=== PATIENT | male | born 1950 | race Caucasian/White ===

== ENCOUNTER 2017-03-07 11:35 | Emergency (ER) | payer OTHER ==
--- NOTE | 2017-03-07 11:41 | PDOC ---
History of Present Illness - General Chief Complaint: Injury Stated Complaint: LEFT FOOT INJURY Time Seen by Provider: 03/07/17 11:39 - History of Present Illness Initial Comments: 03/07/17 11:40 Patient is an otherwise healthy 66 year old male who sustained a small puncture wound to the left heal from a wire gate. The wound stopped bleeding spontaneously. Wound was cleaned with alcohol and dressed with a bandage. Patient's last tetanus shot was when he was a boy. Endorses pain to left heal but able to bear weight, denies redness, warmth or discharge Past History - Past Medical History Allergies/Adverse Reactions: Allergies Allergy/AdvReac Type Severity Reaction Status Date / Time No Known Allergies Allergy Verified 03/07/17 11:41 Home Medications: Ambulatory Orders NK [No Known Home Medication] 03/07/17 Review of Systems - Review of Systems Comments:: 03/07/17 11:54 Denies fever, chills Denies SOB, Denies CP Denies Abdominal pain Endorses pain to left heal, denies redness or discharge *Physical Exam - Physical Exam Comments: 03/07/17 12:05 EXMI, PERRLA Lungs CTAB Heart RRR, no MRG Abdomen soft NTND Small puncture wound to left posterior calcaneus with slightly macerated edges, dried blood but no active bleeding, no erythema or edema, no purulent discharge. Medical Decision Making - Medical Decision Making 03/07/17 11:40 66 year old male with small puncture wound to left heal from a mesh gate. Last tetanus when he was a child. Plan: Wash and dress wound. XRay for foreign bodies Administer TdaP 03/07/17 13:19 Foot xray shows a 3 mm linear density at the posterior aspect of the calcaneous , possibly representing a possible foreign body Spoke with the radiologist who indicated the density is small linear image just off the bone a the postear calcareous that appears to be deeper than the tract from the puncture wound. This is more likely a calcification than a retained foreign body. Patient was consulted regarding the finding and given return precautions for any signs of infection or retained forign body. 03/07/17 13:30 *DC/Admit/Observation/Transfer Diagnosis at time of Disposition: Puncture wound - Discharge Dispostion Disposition: HOME Condition at time of disposition: Stable Admit: No - Patient Instructions Additional Instructions: Follow up with Dr. Riley within one week. If you notices any redness, pain, or sensation of something stuck in the wound, please return to the emergency department. - Attestations Physician Attestion: 03/07/17 13:36 I, Dr. Conrado Zambrano, attest that this document has been prepared under my direction and personally reviewed by me in its entirety. I further attest, that it accurately reflects all work, treatment, procedures and medical decision -making performed by me.
[2017-03-07] MEDS ORDERED: DIPHTH,PERTUSS(ACELL),TET VAC 0.5 ML VIAL IM ONE (11:49)
[2017-03-07 12:10] VITALS: BP 125/68; PULSE 78; TEMP 98.1; BMI 28.1
--- NOTE | 2017-03-07 13:04 | PDOC ---
Attending Attestation - Resident Resident Name: Conrado Zambrano - ED Attending Attestation I have performed the following: I have examined & evaluated the patient, The case was reviewed & discussed with the resident, I agree w/resident's findings & plan, Exceptions are as noted - HPI HPI: 03/07/17 13:00 66yo male with no significant past medical history presents for tetanus shot after scraping his left heel on a thick metal wire. He called his primary doctor today Dr. Riley who then recommended that he come to the emergency department for a tetanus update. Pt is asymptomatic otherwise, denies redness or drainage from the wound. Reports wire was thick and could not have entered his wound. Does not feel a foreign body sensation. Denies fevers, chills, chest pain, shortness of breath, abdominal pain, nausea, vomiting, diarrhea, lower extremity edema, dysuria. - Physicial Exam PE: 03/07/17 13:04 GENERAL: Awake, alert, and fully oriented, in no acute distress HEAD: No signs of trauma EYES: PERRLA, EOMI, sclera anicteric, conjunctiva clear ENT: Auricles normal inspection, hearing grossly normal, nares patent, oropharynx clear without exudates. Moist mucosa NECK: Normal ROM, supple, no lymphadenopathy, JVD, or masses LUNGS: Breath sounds equal, clear to auscultation bilaterally. No wheezes, and no crackles HEART: Regular rate and rhythm, normal S1 and S2, no murmurs, rubs or gallops ABDOMEN: Soft, nontender, normoactive bowel sounds. No guarding, no rebound. No masses EXTREMITIES: Normal range of motion, no edema. No clubbing or cyanosis. No cords, erythema, or tenderness NEUROLOGICAL: Normal speech, cranial nerves intact, negative pronator drift, 5/ 5 strength in all 4 extremities, normal sensation to light touch in all 4 extremities, normal cerebellar exam, normal gait, normal reflexes and tone SKIN: Small 2mm superficial hemostatic puncture wound to left posterior calcaneus with slightly macerated edges, no erythema or edema, no purulent discharge. - Medical Decision Making 03/07/17 12:35 66-year-old male presents with superficial abrasion. Exam with no signs of infection. We will update tetanus and obtain an x-ray to evaluate for foreign body. -foot XR 08/25/17 13:06 Foot x-ray with a 3 mm likely calcification near the calcaneus. Although a foreign body cannot be ruled out, this finding appears deep, close to bone and thus and unlikely to be a foreign body given patient report that the wire was thick and when we explored the wound, the wound is very superficial. I discussed this finding with the patient who does not feel anything is in his foot but I advised him to monitor for any redness, increasing pain, or foreign body sensation. I discussed the physical exam findings, ancillary test results and final diagnoses with the patient. I answered all of the patient's questions. The patient was satisfied with the care received and felt comfortable with the discharge plan and treatment plan. The patient will call their Dr. Riley within 24 hours to arrange follow-up and will return to the Emergency Department with any new, persistent or worsening symptoms.
== END 2017-03-07 12:56 | disposition home or self-care (01) ==
LOC: FER 11:35
PROC: 3E0234Z Introduction of Serum, Toxoid and Vaccine into Muscle, Percutaneous Approach (ICD-10-PCS; principal; 2017-03-07)
DX: S91.332A Puncture wound without foreign body, left foot, initial encounter (principal); W22.8XXA Striking against or struck by other objects, initial encounter; Y93.89 Activity, other specified; Y92.9 Unspecified place or not applicable
CPT/HCPCS: 73630-TC-LT; 99281-25

== ENCOUNTER 2019-04-20 15:24 | Inpatient (IN) | payer OTHER ==
--- NOTE | 2019-04-20 15:33 | PDOC ---
Rapid Medical Evaluation Chief Complaint: Pain, Acute Time Seen by Provider: 04/20/19 15:30 Medical Evaluation: Allergies Allergy/AdvReac Type Severity Reaction Status Date / Time No Known Allergies Allergy Verified 03/07/17 11:41 04/20/19 15:31 I performed a brief in-person evaluation of this patient. Healthy 68-year-old male with 10 days of abd pain, now with BRBPR and vomiting/ one episode hematemesis since Friday. Alert, oriented, no distress, hemodynamics adequate. Abd distended, LLQ tenderness. I have ordered the following: CXR CBC, CMP, PT/INR, T&S Patient to proceed to the ED for further evaluation. Discharge Disposition - Diagnosis Gastrointestinal bleed - Discharge Dispostion Condition at time of disposition: Stable - Referrals - Patient Instructions - Post Discharge Activity
--- NOTE | 2019-04-20 16:17 | HP ---
Admitting History and Physical - Primary Care Physician PCP: Maureen Riley S - Admission Chief Complaint: N/V/ abdominal pain History of Present Illness: 68 yo M coming in due to 10 days of abdominal pain, now with some blood streaks in vomitus. States that he has vomited 4 times over past few days, and had one episode of blood streaked stool on Friday. Has not had a bowel movement since then, which patient attributes to not eating anything 2/2 worsening pain. However, patient does complain of abdominal distension. Specifically denies CP, SOB, fevers/chills, MARX. He tried OCTx meds and PPIs but did not help. No h/o PUD or GI cancers or surgery. History Source: Patient Limitations to Obtaining History: No Limitations - Smoking History Smoking history: Never smoked Have you smoked in the past 12 months: No - Alcohol/Substance Use Hx Alcohol Use: No History of Substance Use: reports: None - Social History Usual Living Arrangement: Yes: With Spouse Do you think of yourself as: Straight/Heterosexual ADL: Independent History of Recent Travel: No Home Medications - Allergies Allergies/Adverse Reactions: Allergies Allergy/AdvReac Type Severity Reaction Status Date / Time No Known Allergies Allergy Verified 03/07/17 11:41 - Home Medications Home Medications: Ambulatory Orders NK [No Known Home Medication] 03/07/17 Family Medical History Family History: Unremarkable Review of Systems - Review of Systems Constitutional: reports: Unintentional Wgt. Loss. denies: Chills, Fever Eyes: denies: Blurred Vision, Double Vision HENT: denies: Difficult Swallowing, Ear Pain, Epistaxis Neck: denies: Stiffness, Tenderness Cardiovascular: denies: Chest Pain, Palpitations, Shortness of Breath Respiratory: denies: Cough, SOB, SOB on Exertion Gastrointestinal: reports: Abdominal Pain, Bloating, Vomiting, Vomiting Blood. denies: Constipation, Diarrhea Genitourinary: denies: Burning, Dysuria, Flank Pain Musculoskeletal: denies: Back Pain, Joint Swelling Integumentary: denies: Eczema, Rash, Wound Neurological: denies: Change in LOC, Incoordination, Unsteady Gait, Weakness Endocrine: denies: Excessive Sweating, Flushing Hematology/Lymphatic: denies: Easily Bruised, Excessive Bleeding Psychiatric: denies: Anxiety, Depression, Suicidal Physical Examination Vital Signs: Vital Signs Temperature 97.8 F 04/20/19 15:31 Pulse Rate 88 04/20/19 15:31 Respiratory Rate 16 04/20/19 15:31 Blood Pressure 151/79 04/20/19 15:31 O2 Sat by Pulse Oximetry (%) 100 04/20/19 15:31 Constitutional: Yes: No Distress, Calm Eyes: Yes: Conjunctiva Clear HENT: Yes: Atraumatic Neck: Yes: Supple Cardiovascular: Yes: Regular Rate and Rhythm Respiratory: Yes: CTA Bilaterally Gastrointestinal: Yes: Soft, Distention, Tenderness, Tenderness, Epigastrium. No: Vomiting Renal/: No: CVA Tenderness - Left, CVA Tenderness - Right, Hematuria Musculoskeletal: No: Back Pain, Muscle Weakness Extremities: No: Amputation, Cold, Cool, Cyanosis Edema: No Integumentary: No: Rash, Venous Stasis Changes Neurological: Yes: WNL, Alert, Oriented ...Motor Strength: WNL Psychiatric: Yes: WNL, Alert, Oriented. No: Agitated, Suicidal Ideation Imaging - Results Chest X-ray: Report Reviewed Other: Report Reviewed Assessment/Plan 68 yo M coming in due to 10 days of abdominal pain, now with blood streak vomitus and guaiac positive stools; CT c/w pyloric obstruction NPO; IV PPI IVF GI eval for EGD r/o PUD vs CA f/u labs; d/w pt and GI; pt agreed with plan
[2019-04-20 16:20] LABS: BASO % 0.8 % (0-2.0); EOS % 3.9 % (0-4.5); HEMATOCRIT 41.8 % (35.4-49); HEMOGLOBIN 14.2 GM/dL (11.7-16.9); LYMPH % 22.6 % (8-40); MCH 29.6 pg (25.7-33.7); NEUT % 63.7 % (42.8-82.8); PLATELET COUNT 214 K/MM3 (134-434); RBC 4.81 M/mm3 (4.00-5.60); RDW 13.6 % (11.9-15.9); WHITE BLOOD COUNT 5.4 K/mm3 (4.0-10.0)
--- NOTE | 2019-04-20 16:40 | PDOC ---
History of Present Illness - General Chief Complaint: Pain, Acute Stated Complaint: ABD PAIN X 10 DAYS Time Seen by Provider: 04/20/19 15:30 History Source: Patient Exam Limitations: No Limitations - History of Present Illness Initial Comments: 04/20/19 16:40 68 yo M coming in due to 10 days of abdominal pain, now with BRBPR and vomiting. States that he has vomited 4 times over past few days, nbnb, and had one episode of blood streaked stool on Friday. Has not had a bowel movement since then, which patient attributes to not eating anything 2/2 worsening pain. However, patient does complain of abdominal distension. Specifically denies CP, SOB, fevers/chills, MARX. Spoke with the PCP Dr. Riley, who states that they have attempted to treat the patient's symptoms with PPI without avail, and he is now unable to eat and having vomiting. She requested that we admit the patient for further workup. Past History - Past Medical History Allergies/Adverse Reactions: Allergies Allergy/AdvReac Type Severity Reaction Status Date / Time No Known Allergies Allergy Verified 03/07/17 11:41 Home Medications: Ambulatory Orders NK [No Known Home Medication] 03/07/17 COPD: No - Immunization History Immunization Up to Date: No - Psycho Social/Smoking Cessation Hx Smoking History: Never smoked Have you smoked in the past 12 months: No Information on smoking cessation initiated: No Hx Alcohol Use: No Drug/Substance Use Hx: No Substance Use Type: None Review of Systems - Review of Systems Constitutional: No: Chills, Fever HEENTM: No: Recent change in vision, Hearing Loss, Difficulty Swallowing Respiratory: No: Cough, Orthopnea, Shortness of Breath Cardiac (ROS): No: Chest Pain, Edema, Irregular Heart Rate, Lightheadedness ABD/GI: Yes: Blood Streaked Bowels, Nausea, Vomiting. No: Constipated, Diarrhea : No: Burning, Dysuria, Discharge, Frequency, Flank Pain, Hematuria Musculoskeletal: No: Back Pain, Muscle Weakness Neurological: No: Headache, Numbness, Paresthesia, Tingling, Dizziness *Physical Exam - Vital Signs Last Vital Signs Temp Pulse Resp BP Pulse Ox 97.8 F 88 16 151/79 100 04/20/19 15:31 04/20/19 15:31 04/20/19 15:31 04/20/19 15:31 04/20/19 15:31 - Physical Exam Comments: 04/20/19 17:08 Gen: well-developed, well-nourished, NAD Neuro: AAOX4, CNII-XII intact, FTN intact HEENT: atraumatic, normocephalic Neck: trachea midline, soft CV: regular rate, regular rhythm Pulm: CTA b/l, no wheezing Abd: soft, distended, ttp in LUQ and LLQ MSK: full ROM, intact pulses Extr: no edema, no deformities Rectal: normal tone, no apparent external hemorrhoids or fissures Skin: warm, dry ED Treatment Course - LABORATORY CBC & Chemistry Diagram: 04/20/19 16:06 04/20/19 16:06 - ADDITIONAL ORDERS Additional order review: 04/20/19 16:06 RBC 4.81 MCV 87.0 MCHC 34.0 RDW 13.6 MPV 8.0 Neutrophils % 63.7 Lymphocytes % 22.6 Monocytes % 9.0 Eosinophils % 3.9 Basophils % 0.8 Medical Decision Making - Medical Decision Making 04/20/19 16:39 CXR appears without acute pathology. 04/20/19 17:[address] Riley, confirmed that they wanted Dr. John consulted. 04/20/19 17:25 Labs unremarkable. Will f/u guaiac and CT 04/20/19 17:31 Stool negative for blood. Discharge - Discharge Information Problems reviewed: Yes Clinical Impression/Diagnosis: Gastrointestinal bleed Condition: Stable - Admission Yes - Follow up/Referral - Patient Discharge Instructions - Post Discharge Activity
[2019-04-20 16:44] LABS: INR 1.21 (0.83-1.09); PROTHROMBIN TIME (PATIENT) 14.3 SEC (9.7-13.0)
[2019-04-20 16:47] LABS: ALBUMIN 3.9 g/dl (3.4-5.0); BILIRUBIN,TOTAL 0.8 mg/dL (0.2-1); BLOOD UREA NITROGEN 10.1 mg/dL (7-18); CALCIUM 9.1 mg/dL (8.5-10.1); CREATININE 0.8 mg/dL (0.55-1.3); POTASSIUM 4.8 mmol/L (3.5-5.1); TOT PROT 7.3 g/dl (6.4-8.2)
[2019-04-20 16:47] LABS: URINE APPEARANCE CLEAR; URINE BILIRUBIN NEGATIVE (NEGATIVE); URINE COLOR YELLOW; URINE GLUCOSE (UA) NEGATIVE (NEGATIVE); URINE KETONE NEGATIVE (NEGATIVE); URINE LEUK ESTERASE NEGATIVE (NEGATIVE); URINE NITRITE NEGATIVE (NEGATIVE); URINE PROTEIN NEGATIVE (NEGATIVE)
--- NOTE | 2019-04-20 17:41 | PDOC ---
Attending Attestation - Resident Resident Name: Caron Sellers - ED Attending Attestation I have performed the following: I have examined & evaluated the patient, The case was reviewed & discussed with the resident, I agree w/resident's findings & plan, Exceptions are as noted - HPI HPI: 04/20/19 17:39 This 68 yo male was sent to the ED for admission for 10 days of abdominal bloating and pain. Dr John is attending to the patient in the emergency room currently 04/20/19 17:42 - Physicial Exam PE: 04/20/19 18:43 wnwd 68 yo male head ncat neck supple lungs cta b/l cvs [id number] abd + epigstric tenderness skin earm and dry neuro axox3,ambulatory - Medical Decision Making 04/20/19 17:42 Review of labs: labs are essentially wnl, hemoccult is negative cxr napd 04/20/19 18:44 this 68 yo male has had about 2 weeks of abd pain and vomiting ct scan shows distended fluid filled stomach with thick walled narrowed antrum imp gastric outlet obstruction and admitted to med/surg for further eval and treatment
--- NOTE | 2019-04-20 18:15 | CON.GI ---
Consult Consult Specialty:: Gastroenterology Referred by:: Dr. Riley Reason for Consultation:: Abdominal pain and vomiting - History of Present Illness Chief Complaint: Unable to keep any food or fluid down due to pain and vomiting History of Present Illness: 68M has had postprandial pain and vomiting for the past 2 weeks. On 04/17 he had an episode of hematemesis. He denies any melena or diarrhea. He has been having a well formed BM daily. He denies fevers but has been losing weight. He denies NSAID usage. No ETOH abuse. He has had similar pain in the past after taking aspirin. He has never had an EGD or a colonoscopy and denies a FH of GI malignancy. - History Source History Provided By: Patient Limitations to Obtaining History: No Limitations - Past Medical History Musculoskeletal: Yes: Osteoarthritis - Past Surgical History Past Surgical History: Yes: Hernia Repair (RIH) - Alcohol/Substance Use Hx Alcohol Use: No History of Substance Use: reports: None - Smoking History Smoking history: Never smoked Have you smoked in the past 12 months: No - Social History Usual Living Arrangement: With Spouse ADL: Independent Occupation: building maintenance Place of : Other ([employer] [facility]) Came to [place] (year): age 33 History of Recent Travel: Yes (to [facility]) Home Medications - Allergies Allergies/Adverse Reactions: Allergies Allergy/AdvReac Type Severity Reaction Status Date / Time No Known Allergies Allergy Verified 03/07/17 11:41 - Home Medications Home Medications: Ambulatory Orders NK [No Known Home Medication] 03/07/17 Family Medical History Family Hx Cancer: Father ( 77 prostate cancer) Other Family History: Motehr liver to 82 and of natural causes. Siblings are healthy Review of Systems - Review of Systems Constitutional: reports: Unintentional Wgt. Loss Eyes: reports: No Symptoms HENT: reports: No Symptoms Cardiovascular: reports: No Symptoms Respiratory: reports: No Symptoms Gastrointestinal: reports: Abdominal Pain, Bloating, Indigestion, Vomiting, Vomiting Blood Genitourinary: reports: No Symptoms Musculoskeletal: reports: No Symptoms Integumentary: reports: No Symptoms Neurological: reports: No Symptoms Endocrine: reports: No Symptoms Physical Exam-GI Vital Signs: Vital Signs Temperature 97.8 F 04/20/19 15:31 Pulse Rate 88 04/20/19 15:31 Respiratory Rate 16 04/20/19 15:31 Blood Pressure 151/79 04/20/19 15:31 O2 Sat by Pulse Oximetry (%) 100 04/20/19 15:31 CBC,CMP WBC 5.4 K/mm3 (4.0-10.0) 04/20/19 16:06 RBC 4.81 M/mm3 (4.00-5.60) 04/20/19 16:06 Hgb 14.2 GM/dL (11.7-16.9) 04/20/19 16:06 Hct 41.8 % (35.4-49) 04/20/19 16:06 MCV 87.0 fl (80-96) 04/20/19 16:06 MCH 29.6 pg (25.7-33.7) 04/20/19 16:06 MCHC 34.0 g/dl (32.0-35.9) 04/20/19 16:06 RDW 13.6 % (11.9-15.9) 04/20/19 16:06 Plt Count 214 K/MM3 (134-434) 04/20/19 16:06 MPV 8.0 fl (7.5-11.1) 04/20/19 16:06 Absolute Neuts (auto) 3.5 K/mm3 (1.5-8.0) 04/20/19 16:06 Neutrophils % 63.7 % (42.8-82.8) 04/20/19 16:06 Lymphocytes % 22.6 % (8-40) 04/20/19 16:06 Monocytes % 9.0 % (3.8-10.2) 04/20/19 16:06 Eosinophils % 3.9 % (0-4.5) 04/20/19 16:06 Basophils % 0.8 % (0-2.0) 04/20/19 16:06 Nucleated RBC % 0 % (0-0) 04/20/19 16:06 Sodium 140 mmol/L (136-145) 04/20/19 16:06 Potassium 4.8 mmol/L (3.5-5.1) 04/20/19 16:06 Chloride 106 mmol/L (98-107) 04/20/19 16:06 Carbon Dioxide 31 mmol/L (21-32) 04/20/19 16:06 Anion Gap 4 MMOL/L (8-16) L 04/20/19 16:06 BUN 10.1 mg/dL (7-18) 04/20/19 16:06 Creatinine 0.8 mg/dL (0.55-1.3) 04/20/19 16:06 Est GFR (CKD-EPI)AfAm 107.13 04/20/19 16:06 Est GFR (CKD-EPI)NonAf 92.44 04/20/19 16:06 Random Glucose 100 mg/dL (74-106) 04/20/19 16:06 Calcium 9.1 mg/dL (8.5-10.1) 04/20/19 16:06 Total Bilirubin 0.8 mg/dL (0.2-1) 04/20/19 16:06 AST 30 U/L (15-37) 04/20/19 16:06 ALT 25 U/L (13-61) 04/20/19 16:06 Alkaline Phosphatase 75 U/L (45-117) 04/20/19 16:06 Total Protein 7.3 g/dl (6.4-8.2) 04/20/19 16:06 Albumin 3.9 g/dl (3.4-5.0) 04/20/19 16:06 Lipase 258 U/L (73-393) 04/20/19 16:06 Constitutional: Yes: Well Nourished, Calm Eyes: Yes: Conjunctiva Clear HENT: Yes: Atraumatic, Other (right cheek crusted lesion near lip corner) Neck: Yes: Supple Cardiovascular: Yes: Regular Rate and Rhythm Respiratory: Yes: Regular Gastrointestinal Inspection: Yes: Scars (RIH incision) ...Auscultate: Yes: Normoactive Bowel Sounds ...Palpate: Yes: Tenderness (mild epigastric tenderness. no mass), Other ( succussion splash) ...Percussion: Yes: Tympanitic ...Rectal Exam: Yes: Guaiac Positive (2+ soft prostate, brown strongly g positive stool) Musculoskeletal: Yes: WNL Extremities: Yes: WNL Edema: No Integumentary: Yes: WNL Neurological: Yes: Alert, Oriented Labs: CBC, BMP 04/20/19 16:06 04/20/19 16:06 INR, PTT INR 1.21 (0.83-1.09) H 04/20/19 16:06 Imaging - Results Cat Scan: Image Reviewed (distended fluid filled stomach with thick walled narrowed antrum. Sigmoid diverticulosis is seen but no diverticulitis.) Problem List - Problems (1) Gastric outlet obstruction Code(s): K31.1 - ADULT HYPERTROPHIC PYLORIC STENOSIS (2) Hematemesis with nausea Code(s): K92.0 - HEMATEMESIS (3) Epigastric abdominal pain Code(s): R10.13 - EPIGASTRIC PAIN (4) Weight loss Code(s): R63.4 - ABNORMAL WEIGHT LOSS (5) Occult blood in stools Code(s): R19.5 - OTHER FECAL ABNORMALITIES (6) History of inguinal herniorrhaphy Code(s): Z98.890 - OTHER SPECIFIED POSTPROCEDURAL STATES; Z87.19 - PERSONAL HISTORY OF OTHER DISEASES OF THE DIGESTIVE SYSTEM (7) Diverticulosis Code(s): K57.90 - DVRTCLOS OF INTEST, PART UNSP, W/O PERF OR ABSCESS W/O BLEED Assessment/Plan Assessment: -- Gastric outlet obstruction with a main differential of peptic ulcer disease vs gastric neoplasm as opposed to others. His normal CBC and recent good health support the former. His eastern roots however raise the possibility of chronic H. pylori gastritis which predisposes to both duodenal ulcers and gastric cancer -- Sigmoid diverticulosis on CT -- Lukas is due for colon cancer screening Plan: -- I have obtained informed consents for both and EGD and if necessary or possible a colonoscopy after informing Lukas of the potential for such complications as perforation and hemorrhage. I have scheduled an EGD for tomorrow -- Strict NPO and if vomiting ensues or pain increases then will initiate NG suctioning -- PPI drip -- Colonoscopy will likely need to be deferred until his gastric outlet resolves Case discussed with Dr Maureen Riley
[2019-04-20] MEDS ORDERED: ONDANSETRON 4 MG/2 ML VIAL IVPUSH PRN (18:35)
[2019-04-20] MEDS ORDERED: PANTOPRAZOLE SODIUM 40 MG VIAL ONE (19:36)
[2019-04-20] MEDS ORDERED: ONDANSETRON 4 MG/2 ML VIAL ONE (19:36)
[2019-04-20] MEDS: DEXTROSE 5%-0.45% SALINE 1,000 ML IV SCH (19:52)
[2019-04-20] MEDS: PANTOPRAZOLE SODIUM 80 MG in SODIUM CHLORIDE 100 ML IVPB SCH (20:28)
[2019-04-21] MEDS: PANTOPRAZOLE SODIUM 80 MG in SODIUM CHLORIDE 100 ML IVPB SCH (05:13)
[2019-04-21 07:43] LABS: HEMATOCRIT 39.1 % (35.4-49); HEMOGLOBIN 13.5 GM/dL (11.7-16.9); MCH 29.6 pg (25.7-33.7); MCHC 34.4 g/dl (32.0-35.9); MEAN CELL VOLUME 86.1 fl (80-96); MEAN PLT VOLUME 8.4 fl (7.5-11.1); PLATELET COUNT 204 K/MM3 (134-434); RBC 4.54 M/mm3 (4.00-5.60); RDW 13.3 % (11.9-15.9); WHITE BLOOD COUNT 4.4 K/mm3 (4.0-10.0)
[2019-04-21 07:50] LABS: INR 1.2 (0.83-1.09); PROTHROMBIN TIME (PATIENT) 14.2 SEC (9.7-13.0)
[2019-04-21 08:07] LABS: ALBUMIN 3.3 g/dl (3.4-5.0); BILIRUBIN,TOTAL 0.7 mg/dL (0.2-1); BLOOD UREA NITROGEN 7.2 mg/dL (7-18); CALCIUM 8.4 mg/dL (8.5-10.1); CREATININE 0.7 mg/dL (0.55-1.3); POTASSIUM 3.7 mmol/L (3.5-5.1); TOT PROT 6.6 g/dl (6.4-8.2)
--- NOTE | 2019-04-21 09:39 | PN ---
Progress Note, Physician Chief Complaint: in bed awaiting EGD no abd pain but no eating for 2 days; no N/V. - Current Medication List Current Medications: Active Medications Dextrose/Sodium Chloride (D5-1/2ns -) 1,000 mls @ 125 mls/hr IV ASDIR [facility] Last Admin: 04/20/19 19:52 Dose: 125 mls/hr Pantoprazole Sodium 80 mg/ (Sodium Chloride) 100 mls @ 10 mls/hr IVPB Q10H [facility] Last Admin: 04/21/19 05:13 Dose: 10 mls/hr Ondansetron HCl (Zofran Injection) 4 mg IVPUSH Q6H PRN PRN Reason: NAUSEA - Objective Vital Signs: Vital Signs Temperature 98.1 F 04/21/19 09:25 Pulse Rate 78 04/21/19 09:25 Respiratory Rate 8 L 04/21/19 09:25 Blood Pressure 123/75 04/21/19 09:25 O2 Sat by Pulse Oximetry (%) 98 04/21/19 09:25 Constitutional: Yes: No Distress, Calm Eyes: Yes: Conjunctiva Clear HENT: Yes: Atraumatic Neck: Yes: Supple Cardiovascular: Yes: Regular Rate and Rhythm Respiratory: Yes: CTA Bilaterally Gastrointestinal: Yes: Soft. No: Tenderness Genitourinary: No: CVA Tenderness - Left, CVA Tenderness - Right, Hematuria Musculoskeletal: No: Joint Stiffness, Joint Swelling Extremities: No: Cold, Cool, Cyanosis Edema: No Integumentary: No: Rash, Venous Stasis Changes Neurological: Yes: WNL, Alert, Oriented ...Motor Strength: WNL Psychiatric: Yes: WNL, Alert, Oriented. No: Agitated, Suicidal Ideation Labs: CBC, BMP 04/21/19 06:17 04/21/19 06:17 INR, PTT INR 1.20 (0.83-1.09) H 04/21/19 06:17 - ....Imaging Other: Report Reviewed Assessment/Plan 68 yo M coming in due to 10 days of abdominal pain, now with blood streak vomitus and guaiac positive stools; CT c/w pyloric obstruction NPO; IV PPI IVF GI eval for EGD r/o PUD vs CA f/u labs; d/w pt and GI; pt agreed with plan
[2019-04-21] MEDS ORDERED: MIDAZOLAM HCL 2 MG/2 ML SINGLE DOSE VIAL ONE ×2 (10:20)
[2019-04-21] MEDS ORDERED: LIDOCAINE VISCOUS 2% ORAL/TOP 20 ML UNIT-DOSE CUP ONE (10:49)
--- NOTE | 2019-04-21 11:53 | PN ---
Progress Note (short form) - Note Progress Note: GI Procedure NOte: Please see scanned EGD report. An near totally obstructing distal antral tumor that extends into the bulb of the duodenum was found.This had the appearance of a submucosal tumor but adenocarcinoma and even peptic ulcer disease cannot be excluded. I suspect a lymphoma, GIST or carcinoid tumor. Await biopsies. The stomach was decompressed of contents using an Edlich tube after which an 18 Fr Spring sump NG tube was inserted for continued suctioning,. The case was discussed with Dr Maureen Riley. Problem List - Problems (1) Gastric outlet obstruction Code(s): K31.1 - ADULT HYPERTROPHIC PYLORIC STENOSIS (2) Hematemesis with nausea Code(s): K92.0 - HEMATEMESIS (3) Epigastric abdominal pain Code(s): R10.13 - EPIGASTRIC PAIN (4) Weight loss Code(s): R63.4 - ABNORMAL WEIGHT LOSS (5) Occult blood in stools Code(s): R19.5 - OTHER FECAL ABNORMALITIES (6) History of inguinal herniorrhaphy Code(s): Z98.890 - OTHER SPECIFIED POSTPROCEDURAL STATES; Z87.19 - PERSONAL HISTORY OF OTHER DISEASES OF THE DIGESTIVE SYSTEM (7) Diverticulosis Code(s): K57.90 - DVRTCLOS OF INTEST, PART UNSP, W/O PERF OR ABSCESS W/O BLEED
--- NOTE | 2019-04-21 12:54 | EKG ---
Test Reason : Blood Pressure : / mmHG Vent. Rate : 075 BPM Atrial Rate : 075 BPM P-R Int : 194 ms QRS Dur : 094 ms QT Int : 378 ms P-R-T Axes : 051 -02 025 degrees QTc Int : 422 ms NORMAL SINUS RHYTHM POSSIBLE LEFT ATRIAL ENLARGEMENT NONSPECIFIC T WAVE ABNORMALITY ABNORMAL ECG WHEN COMPARED WITH ECG OF 02-OCT-2005 19:04, NO SIGNIFICANT CHANGE WAS FOUND Confirmed by JOHN RAYMOND, DM ([id number]) on 04/21/2019 12:54:25 PM Referred By: Confirmed By:DM LOPEZ MD
[2019-04-21] MEDS: DEXTROSE 5%-0.45% SALINE 1,000 ML IV SCH (18:46)
[2019-04-21 19:27] VITALS: BMI 28.0
[2019-04-22] MEDS: PANTOPRAZOLE SODIUM 80 MG in SODIUM CHLORIDE 100 ML IVPB SCH (01:04)
[2019-04-22] MEDS: DEXTROSE 5%-0.45% SALINE 1,000 ML IV SCH ×3 (04:42→21:36)
--- NOTE | 2019-04-22 07:17 | PN ---
Progress Note, Physician Chief Complaint: in bed no new c/o; NGT in no pain ; awaiting path report - Current Medication List Current Medications: Active Medications Dextrose/Sodium Chloride (D5-1/2ns -) 1,000 mls @ 125 mls/hr IV ASDIR [facility] Last Admin: 04/22/19 04:42 Dose: 125 mls/hr Pantoprazole Sodium 80 mg/ (Sodium Chloride) 100 mls @ 10 mls/hr IVPB Q10H [facility] Last Admin: 04/22/19 01:04 Dose: 10 mls/hr Ondansetron HCl (Zofran Injection) 4 mg IVPUSH Q6H PRN PRN Reason: NAUSEA - Objective Vital Signs: Vital Signs Temperature 98.6 F 04/22/19 05:45 Pulse Rate 85 04/22/19 05:45 Respiratory Rate 20 04/22/19 05:45 Blood Pressure 124/65 04/22/19 05:45 O2 Sat by Pulse Oximetry (%) 97 04/21/19 21:00 Constitutional: Yes: No Distress, Calm Eyes: Yes: Conjunctiva Clear HENT: Yes: Atraumatic Neck: Yes: Supple Cardiovascular: Yes: Regular Rate and Rhythm Respiratory: Yes: CTA Bilaterally Gastrointestinal: Yes: Soft. No: Tenderness Genitourinary: No: Hematuria Musculoskeletal: No: Joint Stiffness, Joint Swelling Extremities: No: Cold, Cool, Cyanosis Edema: No Integumentary: No: Rash, Venous Stasis Changes Neurological: Yes: WNL, Alert, Oriented ...Motor Strength: WNL Psychiatric: Yes: WNL, Alert, Oriented. No: Agitated, Suicidal Ideation Labs: CBC, BMP 04/21/19 06:17 04/21/19 06:17 INR, PTT INR 1.20 (0.83-1.09) H 04/21/19 06:17 - ....Imaging Other: Report Reviewed Assessment/Plan 68 yo M admitted with pyloric obstruction NPO; IV PPI IVF s/p EGD pyloric mass awaiting path DVT pfx f/u labs; d/w pt and GI; pt agreed with plan
[2019-04-22 09:11] LABS: BASO % 0.5 % (0-2.0); EOS % 2.1 % (0-4.5); HEMATOCRIT 42.2 % (35.4-49); HEMOGLOBIN 14.5 GM/dL (11.7-16.9); LYMPH % 17.3 % (8-40); MCH 29.7 pg (25.7-33.7); MCHC 34.3 g/dl (32.0-35.9); MEAN CELL VOLUME 86.7 fl (80-96); MEAN PLT VOLUME 8.2 fl (7.5-11.1); MONO % 8.2 % (3.8-10.2); NEUT % 71.9 % (42.8-82.8); PLATELET COUNT 223 K/MM3 (134-434); RBC 4.87 M/mm3 (4.00-5.60); RDW 13.8 % (11.9-15.9); WHITE BLOOD COUNT 6.5 K/mm3 (4.0-10.0)
[2019-04-22 09:33] LABS: ALBUMIN 3.6 g/dl (3.4-5.0); BILIRUBIN,TOTAL 1.2 mg/dL (0.2-1); BLOOD UREA NITROGEN 7.4 mg/dL (7-18); CALCIUM 8.4 mg/dL (8.5-10.1); CREATININE 0.8 mg/dL (0.55-1.3); POTASSIUM 4.3 mmol/L (3.5-5.1)
[2019-04-22] MEDS ORDERED: PANTOPRAZOLE SODIUM 160 MG in SODIUM CHLORIDE 250 ML IVPB SCH (11:00)
[2019-04-22] MEDS: PANTOPRAZOLE SODIUM 160 MG in SODIUM CHLORIDE 250 ML IVPB SCH (12:07)
--- NOTE | 2019-04-22 14:06 | CONSULT ---
Consult Consult Specialty:: Hematology and Oncology Referred by:: Dr. Maureen Riley Reason for Consultation:: New antral gastric mass - History of Present Illness Chief Complaint: Abdominal pain, Nausea, vomiting, BRBPR, hematemesis History of Present Illness: The patient is a 68 yo m w/ no PMH who comes into the emergency department c/o Abdominal pain, nausea, vomiting, hematemesis and BRBPR. CTAP showed thickening of the duodenum and a distended stomach. GI was consulted and endoscopy was performed. EGD showed a mass almost completely occluding the duodenum. Biopsies were taken and NGT was inserted for decompression. CEA, Serotonin, 5-HIAA and gastrin were drawn and are pending. On interview, the patient is well appearing and has no complaints aside from the uncomfortable NGT which is still actively draining. He confirms that he has no PMH and has been seeing Dr. Riley regularly for medical care. The patient states that he has never has his previous symptoms before. Patient denies personal history of cancer, but does endorse that his father had prostate cancer which was diagnosed at ~72. No other family history of note. - History Source History Provided By: Patient, Family Member Limitations to Obtaining History: No Limitations - Past Medical History Musculoskeletal: Yes: Osteoarthritis - Past Surgical History Past Surgical History: Yes: Hernia Repair (RIH) - Alcohol/Substance Use Hx Alcohol Use: No History of Substance Use: reports: None - Smoking History Smoking history: Never smoked Have you smoked in the past 12 months: No - Social History Usual Living Arrangement: With Spouse ADL: Independent Occupation: building maintenance History of Recent Travel: No Home Medications - Allergies Allergies/Adverse Reactions: Allergies Allergy/AdvReac Type Severity Reaction Status Date / Time No Known Allergies Allergy Verified 03/07/17 11:41 - Home Medications Home Medications: Ambulatory Orders NK [No Known Home Medication] 03/07/17 Physical Exam Vital Signs: Vital Signs Temperature 98.6 F 04/22/19 05:45 Pulse Rate 85 04/22/19 05:45 Respiratory Rate 20 04/22/19 05:45 Blood Pressure 124/65 04/22/19 05:45 O2 Sat by Pulse Oximetry (%) 97 04/21/19 21:00 Labs: CBC, BMP 04/22/19 07:45 04/22/19 07:45 Imaging - Results Cat Scan: Report Reviewed, Image Reviewed Other: Report Reviewed (EGD), Image Reviewed (EGD) Assessment/Plan The patient is a 68 yo m w/ no PMH who comes into the emergency department c/o Abdominal pain, nausea, vomiting, hematemesis and BRBPR. He has been newly diagnosed with a distal antral tumor #New diagnosis of antral mass -pathology shows poorly differentiated tumor, likely of gastric origin -f/u gastrin, CEA, seratonin and plasma 5-HIAA -GI onboard, following -FOBT negative -Hb and hemodynamics both stable. -will obtain CT chest to assist in staging -Patient will likely require advanced surgery; will discuss transfer to a [facility]
--- NOTE | 2019-04-22 17:41 | PATH ---
Surgical Pathology Report Patient Name: BRUCE RUSHING Med. Rec. #: [id number] /Age/Gender: 1950 (Age: 68) / M Account: [id number] Location: [address] [place] [address] Taken: 04/21/2019 Received: 04/21/2019 Reported: 04/22/2019 Physicians: Anabel John M.D. Specimen(s) Received ANTRUM Clinical History Abdominal pain, vomiting Postoperative diagnosis: Obstructing gastric mass, r/o cancer Final Diagnosis STOMACH, ANTRUM, BIOPSY: POORLY DIFFERENTIATED CARCINOMA. SEE COMMENT. Comment: The biopsy is comprised of pleomorphic malignant cells dispersed as few clusters, aggregates, and single cells. Immunohistochemical stains performed and interpreted at [facility] show the tumor is positive for AE1/3; while negative for CD45, CK7, CK20, and H. Pylori. Although unusual, given the endoscopic findings of gastric mass, the above immunophenotype is compatible with primary gastric origin. Suggest clinical and radiologic correlation. Case discussed with Drs. John and Osvaldo. Positive and negative controls (internal if applicable) show appropriate results. Electronically Signed Cindy Sethi M.D. Gross Description Received in formalin, labeled "antrum" are multiple (>10) brian, irregular portions of soft tissue measuring 0.1 and 0.3 cm. in greatest dimension. The specimens are submitted in toto in one cassette. MLSZ/04/21/2019 sanml/04/21/2019
--- NOTE | 2019-04-22 20:36 | PN.GI ---
GI Progress Note Subjective: GI NOte: The biopsies have disappointingly returned as poorly differentiated adenocarcinoma, Lukas has already been made aware of this by Dr Riley. I have communicated with Dr Riley and Dr Rdz. NG output just 200cc but the majority of retained gastric contents were lavaged and suctioned out after the EGD yesterday. His gastric outlet obstruction precludes enteral feedings. If a palliative gastroenterostomy with or without resection is not feasible he will at least need a surgical jejunostomy. At this point the tumor is too tight for endoscopic stenting. - Objective Vital Signs: Vital Signs Temperature 98.5 F 04/22/19 14:40 Pulse Rate 84 04/22/19 14:40 Respiratory Rate 20 04/22/19 14:40 Blood Pressure 113/67 04/22/19 14:40 O2 Sat by Pulse Oximetry (%) 97 04/21/19 21:00 Laboratory Tests 04/22/19 04/22/19 07:45 07:45 BUN 7.4 Creatinine 0.8 Total Bilirubin 1.2 H AST 21 ALT 21 Alkaline Phosphatase 72 C-Reactive Protein 7.3 H Carcinoembryonic Ag Pending Constitutional: Calm ...Auscultate: Yes: Normoactive Bowel Sounds, Hypoactive Bowel Sounds ...Palpate: Yes: Soft, Other (nontender, succusion splash resolved) Labs: CBC, BMP 04/22/19 07:45 04/22/19 07:45 INR, PTT INR 1.20 (0.83-1.09) H 04/21/19 06:17 Assessment/Plan Assessment: -- 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 -- Sigmoid diverticulosis on CT Plan: -- Continue NG suctioning -- Concur with plans to transfer to [facility] to devise the most optimal approach to this obstructing neoplasm with suspicious local nodes that precludes enteral feeding without some intervention Case discussed with Dr Maureen Riley and Dr Rdz Problem List - Problems (1) Gastric adenocarcinoma Code(s): C16.9 - MALIGNANT NEOPLASM OF STOMACH, UNSPECIFIED (2) Gastric outlet obstruction Code(s): K31.1 - ADULT HYPERTROPHIC PYLORIC STENOSIS (3) Hematemesis with nausea Code(s): K92.0 - HEMATEMESIS (4) Epigastric abdominal pain Code(s): R10.13 - EPIGASTRIC PAIN (5) Weight loss Code(s): R63.4 - ABNORMAL WEIGHT LOSS (6) Occult blood in stools Code(s): R19.5 - OTHER FECAL ABNORMALITIES (7) History of inguinal herniorrhaphy Code(s): Z98.890 - OTHER SPECIFIED POSTPROCEDURAL STATES; Z87.19 - PERSONAL HISTORY OF OTHER DISEASES OF THE DIGESTIVE SYSTEM (8) Diverticulosis Code(s): K57.90 - DVRTCLOS OF INTEST, PART UNSP, W/O PERF OR ABSCESS W/O BLEED
--- NOTE | 2019-04-22 20:47 | PN ---
Teaching Attending Note Name of Resident: Ravin Mcallister ATTENDING PHYSICIAN STATEMENT I saw and evaluated the patient. I reviewed the resident's note and discussed the case with the resident. I agree with the resident's findings and plan as documented. SUBJECTIVE: Patient seen and examined Presented with one month of abdominal bloating . About 2 weeks thereafter began experiencing abdominal pains associated with eating. Presented with emesis and hematemesis. Underwent EGD and found to have obstructing mass distal antrum. Biopsies performed and compatible with poorly differentiated carcinoma of stomach. Ct scan with perigastric and perihepatic nodes, upper abdominal nodes , large portal caval 1.7 cm node in addition to air fluid level in duodenal cap area - the area of obstruction PMH- right inguinal hernia Social history - born in [facility] - came to [place] -32 years earlier , , works in building maintenance. No industrial exposures or intoxicants. Family history positive for father with prostate ca ROS - GI symptoms of bloating, emesis , hematemesis; Gu- nocturia x 2 0 otherwise comprehensiv eROS - non contributory Meds- without PE Last Vital Signs Temp Pulse Resp BP Pulse Ox 98.5 F 84 20 113/67 97 04/22/19 14:40 04/22/19 14:40 04/22/19 14:40 04/22/19 14:40 04/21/19 21:00 HEENT: LIZBETH, EOM Intact Oropharynx: No thrush, No mucositis, NG drainage Neck: Supple Nodes: Without adenopathy Cor: RSR, No murmurs, No gallops Lungs: Clear to P&A Abd: Soft, Normal bowel sounds, No organomegaly, bowel sounds Ext:No significant edema Skin: No rashes, Integument intact CBC, BMP 04/22/19 07:45 04/22/19 07:45 Current Medications Generic Name Dose Route Start Last Admin Trade Name Freq PRN Reason Stop Dose Admin Heparin Sodium (Porcine) 5,000 unit 04/22/19 22:00 Heparin - SQ BID ABIGAIL Dextrose/Sodium Chloride 1,000 mls @ 125 mls/hr 04/20/19 18:45 04/22/19 12:00 D5-1/2ns - IV 125 mls/hr ASDIR ABIGAIL Administration Pantoprazole Sodium 160 mg/ 250 mls @ 12.5 mls/hr 04/22/19 11:00 04/22/19 12: 07 Sodium Chloride IVPB 12.5 mls/hr Q20H ABIGAIL Administration 8 MG/HR Ondansetron HCl 4 mg 04/20/19 18:35 Zofran Injection IVPUSH Q6H PRN NAUSEA Impression: Gastric ca CT scan- suggestive of lymphadenopathy in perigastric, periduodenal , grupo- caval region. Plan: Consider transfer to tertiary care hospital Would consider laparoscopic evaluation to asses nodes, RPN and subdiaphragmatic area. Would consider palliative initial approach for nutrition. Would follow with neoadjuvant chemotherapy followed by surgery and then adjuvant therapy assuming yanira disease is positive. OBJECTIVE: ASSESSMENT AND PLAN:
[2019-04-22] MEDS: HEPARIN NA (PORCINE) 5,000 UNITS/ML 1ML VIAL SQ SCH (21:36)
[2019-04-23] MEDS: DEXTROSE 5%-0.45% SALINE 1,000 ML IV SCH (06:01)
[2019-04-23] MEDS: PANTOPRAZOLE SODIUM 160 MG in SODIUM CHLORIDE 250 ML IVPB SCH ×2 (06:03→12:00)
--- NOTE | 2019-04-23 07:40 | PN ---
Progress Note, Physician Chief Complaint: in bed NAD NGT in no pain afebrile - Current Medication List Current Medications: Active Medications Heparin Sodium (Porcine) (Heparin -) 5,000 unit SQ BID [facility] Last Admin: 04/22/19 21:36 Dose: 5,000 unit Dextrose/Sodium Chloride (D5-1/2ns -) 1,000 mls @ 125 mls/hr IV ASDIR [facility] Last Admin: 04/23/19 06:01 Dose: 125 mls/hr Pantoprazole Sodium 160 mg/ (Sodium Chloride) 250 mls @ 12.5 mls/hr IVPB Q20H [facility] Last Admin: 04/23/19 06:03 Dose: Not Given Ondansetron HCl (Zofran Injection) 4 mg IVPUSH Q6H PRN PRN Reason: NAUSEA - Objective Vital Signs: Vital Signs Temperature 97.9 F 04/23/19 05:00 Pulse Rate 84 04/23/19 05:00 Respiratory Rate 20 04/22/19 23:35 Blood Pressure 133/62 04/23/19 05:00 O2 Sat by Pulse Oximetry (%) 97 04/21/19 21:00 Constitutional: Yes: No Distress, Calm Eyes: Yes: Conjunctiva Clear HENT: Yes: Atraumatic Neck: Yes: Supple Cardiovascular: Yes: Regular Rate and Rhythm Respiratory: Yes: CTA Bilaterally Gastrointestinal: Yes: Soft. No: Tenderness Genitourinary: No: Hematuria Musculoskeletal: No: Joint Stiffness, Joint Swelling Extremities: No: Cold, Cool Edema: No Integumentary: No: Rash, Venous Stasis Changes Neurological: Yes: WNL, Alert, Oriented ...Motor Strength: WNL Psychiatric: Yes: WNL, Alert, Oriented. No: Agitated, Suicidal Ideation Labs: CBC, BMP 04/22/19 07:45 04/22/19 07:45 INR, PTT INR 1.20 (0.83-1.09) H 04/21/19 06:17 - ....Imaging Other: Report Reviewed Assessment/Plan 68 yo M admitted with pyloric obstruction, mass unable to eat NPO; IV PPI IVF NGT s/p EGD pyloric mass - poorly diff adenoCA DVT pfx to transfer to [facility] for surgical onc evamando felix IN d/w dr Rdz and pt he agreed with plan.
[2019-04-23 08:08] LABS: CARCINOEMBRYONIC ANTIGEN 1.7 ng/mL (0.0-4.7)
[2019-04-23 09:50] LABS: BASO % 0.3 % (0-2.0); EOS % 2.5 % (0-4.5); HEMATOCRIT 41.2 % (35.4-49); HEMOGLOBIN 14.2 GM/dL (11.7-16.9); LYMPH % 10.9 % (8-40); MCH 29.7 pg (25.7-33.7); MCHC 34.6 g/dl (32.0-35.9); MEAN PLT VOLUME 8.4 fl (7.5-11.1); MONO % 7.2 % (3.8-10.2); NEUT % 79.1 % (42.8-82.8); PLATELET COUNT 224 K/MM3 (134-434); RBC 4.79 M/mm3 (4.00-5.60); RDW 13.4 % (11.9-15.9); WHITE BLOOD COUNT 7.1 K/mm3 (4.0-10.0)
[2019-04-23 10:16] LABS: ALBUMIN 3.5 g/dl (3.4-5.0); BILIRUBIN,DIRECT 0.3 mg/dL (0.0-0.2); BILIRUBIN,TOTAL 2.1 mg/dL (0.2-1); BLOOD UREA NITROGEN 6.8 mg/dL (7-18); CALCIUM 8.5 mg/dL (8.5-10.1); CREATININE 0.8 mg/dL (0.55-1.3); POTASSIUM 3.6 mmol/L (3.5-5.1)
[2019-04-23] MEDS: HEPARIN NA (PORCINE) 5,000 UNITS/ML 1ML VIAL SQ SCH (11:47)
--- NOTE | 2019-04-23 15:47 | PN.GI ---
GI Progress Note Subjective: GI NOte: Chest CT suggests hilar involvement. NG in esophagus on CT so I advanced it into the stomach. 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 -- Sigmoid diverticulosis on CT Plan: -- Continue NG suctioning -- Concur with plans to transfer to [facility] to devise the most optimal approach to this obstructing neoplasm with suspicious local nodes that precludes enteral feeding without some intervention Dr Heart will be covering this weekend Problem List - Problems (1) Gastric adenocarcinoma Code(s): C16.9 - MALIGNANT NEOPLASM OF STOMACH, UNSPECIFIED (2) Gastric outlet obstruction Code(s): K31.1 - ADULT HYPERTROPHIC PYLORIC STENOSIS (3) Hematemesis with nausea Code(s): K92.0 - HEMATEMESIS (4) Epigastric abdominal pain Code(s): R10.13 - EPIGASTRIC PAIN (5) Weight loss Code(s): R63.4 - ABNORMAL WEIGHT LOSS (6) Occult blood in stools Code(s): R19.5 - OTHER FECAL ABNORMALITIES (7) History of inguinal herniorrhaphy Code(s): Z98.890 - OTHER SPECIFIED POSTPROCEDURAL STATES; Z87.19 - PERSONAL HISTORY OF OTHER DISEASES OF THE DIGESTIVE SYSTEM (8) Diverticulosis Code(s): K57.90 - DVRTCLOS OF INTEST, PART UNSP, W/O PERF OR ABSCESS W/O BLEED
[2019-04-23 20:08] VITALS: BP 140/73; PULSE 92; TEMP 99
--- NOTE | 2019-04-24 09:55 | DS ---
Physical Examination Vital Signs: Vital Signs Temperature 99 F 04/23/19 20:06 Pulse Rate 92 H 04/23/19 20:06 Respiratory Rate 19 04/23/19 20:06 Blood Pressure 140/73 04/23/19 20:06 O2 Sat by Pulse Oximetry (%) 97 04/23/19 09:00 Findings/Remarks: events noted feels better with NGT no stomach pain see progress note from 04/23 Labs: CBC, BMP 04/23/19 08:40 04/23/19 08:40 Discharge Summary Problems reviewed: Yes Reason For Visit: RECTAL HEMORRHAGE 68 YOM no PMH admitted with N/V/ stomach pain and upper GI Bleed Procedures: Principal: seen by GI dr John; EGD c/w antral mass biopsy c/w poorly diff adenoCA Other Procedures: seen by ONC dr Rdz; had CAP CT c/w mediastinal, periportal and perigastric adenopathy Hospital Course: Improved symptomatically with NGT IVF IV PPI Health Concerns: unable to eat or to drink, pyloric obstruction Plan of Treatment: transferred to [facility] for further management of the malignant pyloric obstruction; to f/u with GI ONC and PCP after DC from Condition: Stable - Instructions Referrals: Maureen Riley [Primary Care Provider] - Disposition: TRANSFER ACUTE CARE/OTHER HOSP - Home Medications Comprehensive Discharge Medication List: Ambulatory Orders NK [No Known Home Medication] 03/07/17
[2019-04-29 05:12] LABS: 5-HIAA PLASMA 2.8 ng/mL (.)
== END 2019-04-23 21:52 | disposition short-term general hospital (02) | DRG 375 ==
LOC: JER 15:24 → JERBED 16:29 → J6S 04-21 17:02
PROVIDERS: ADMIT Internal Medicine; ATTEND Internal Medicine
PROC: 0D9670Z Drainage of Stomach with Drainage Device, Via Natural or Artificial Opening (ICD-10-PCS; 2019-04-21)
PROC: 0DB78ZX Excision of Stomach, Pylorus, Via Natural or Artificial Opening Endoscopic, Diagnostic (ICD-10-PCS; principal; 2019-04-21 10:00)
DX: C16.9 Malignant neoplasm of stomach, unspecified (principal); K31.1 Adult hypertrophic pyloric stenosis; K92.0 Hematemesis; K57.30 Diverticulosis of large intestine without perforation or abscess without bleeding; R63.4 Abnormal weight loss
CPT/HCPCS: 36415; 71046-TC-FY; 71260-TC; 74177-TC; 80048; 80053; 80076; 81003; 82272; 82378; 82941; 83497; 83690; 84260; 85025; 85027; 85610; 86140; 86850; 86900; 86901; 93005; 93010; 99284-25; J1644; Q9967

== ENCOUNTER 2019-05-05 18:11 | Inpatient (IN) | payer OTHER ==
[2019-05-05 18:19] VITALS: BMI 26.6
--- NOTE | 2019-05-05 20:33 | PDOC ---
History of Present Illness - General Chief Complaint: Pain Stated Complaint: R/O DVT, RESPIRATORY INFECTION, SENT BY DR ASHBY Time Seen by Provider: 05/05/19 20:06 History Source: Patient Exam Limitations: No Limitations - History of Present Illness Initial Comments: 05/07/19 07:35 HPI: 68M w/ recently dx gastric ca IV presenting w/ 2 days of left calf pain w/ swelling that started today. Denies chest pain, sob, numbness, tingling, n/v. Endorses fevers for 1 week treated w/ tylenol and 2-3 days of diaphoresis and fatigue. Pt was recently admitted to [facility] on 04/20 and transferred to [facility] where he was diagnosed w/ gastric ca. Pt on amoxicillin and azithromycin for recently acquired pneumonia. No cough. PMH: as above Dr. Kendell MUNOZ Denies etoh, drug, smoking Past History - Past Medical History Allergies/Adverse Reactions: Allergies Allergy/AdvReac Type Severity Reaction Status Date / Time No Known Allergies Allergy Verified 05/05/19 18:19 Home Medications: Ambulatory Orders Enoxaparin [Lovenox -] 80 mg SQ Q12H #60 disp.syrin 05/06/19 Cancer: Yes (stomach) COPD: No - Immunization History Immunization Up to Date: No - Psycho Social/Smoking Cessation Hx Smoking History: Never smoked Have you smoked in the past 12 months: No Information on smoking cessation initiated: No Hx Alcohol Use: No Drug/Substance Use Hx: No Substance Use Type: None Hx Substance Use Treatment: No Review of Systems - Review of Systems Able to Perform ROS?: Yes Comments:: 05/07/19 07:35 ROS: CONSTITUTIONAL: Endorses fevers, diaphoresis, fatigue. Denies chills. RESP: Denies SOB, cough CARD: Denies chest pain, palpitations GI: Endorses loose stools since discharge (pureed diet, abx). Denies N / V, abdominal pain, inability to tolerate PO NEURO: Denies numbness, tingling Is the patient limited Yakut proficient: No *Physical Exam - Vital Signs Last Vital Signs Temp Pulse Resp BP Pulse Ox 97.9 F 105 H 19 132/76 97 05/05/19 18:16 05/05/19 18:16 05/05/19 18:16 05/05/19 18:16 05/05/19 18:16 - Physical Exam Comments: 05/07/19 07:35 PE: GEN: Well appearing, NAD, AAOx3 HEENT: NC/AT. Normal voice. Supple neck w/ FROM. CV: S1/S2, RRR, no m/r/g LUNG: CTAB, no wheezes, crackles, rales, rhonchi. GI: soft, ndnt, +BS, no guarding, no rebound. No masses. EXTREMITIES: 1+ pitting edema of the LLE from mid-s[place] to knees. +TTP of L. calf and popliteal fossa. No edema or pain in RLE> SKIN: warm, dry, normal turgor PSYCH: normal mood and affect, pleasant, cooperative NEURO: Moving all extremities well, ambulates well w/ normal gait. Sensation to light touch grossly intact ED Treatment Course - LABORATORY CBC & Chemistry Diagram: 05/06/19 07:00 05/06/19 07:00 Medical Decision Making - Medical Decision Making 05/05/19 21:00 MDM: 68M recent cancer dx c/o acute unilateral leg swelling and calf pain - CBC, CMP, CARDIAC - EKG - CXR - IV fluids - Duplex Signed out to PM team Discharge - Discharge Information Problems reviewed: Yes Clinical Impression/Diagnosis: Swelling of lower extremity Condition: Stable Disposition: HOME - Follow up/Referral - Patient Discharge Instructions - Post Discharge Activity
[2019-05-05 21:06] LABS: BASO % 0.9 % (0-2.0); HEMATOCRIT 40.1 % (35.4-49); HEMOGLOBIN 13.7 GM/dL (11.7-16.9); LYMPH % 20.1 % (8-40); MCHC 34.1 g/dl (32.0-35.9); MEAN PLT VOLUME 8.2 fl (7.5-11.1); MONO % 12.6 % (3.8-10.2); NEUT % 63.4 % (42.8-82.8); PLATELET COUNT 182 K/MM3 (134-434); RBC 4.72 M/mm3 (4.00-5.60); RDW 13.3 % (11.9-15.9); WHITE BLOOD COUNT 7.1 K/mm3 (4.0-10.0)
[2019-05-05 21:16] LABS: INR 1.18 (0.83-1.09)
[2019-05-05 21:19] LABS: ACTIVATED PTT 26.4 SECONDS (25.2-36.5)
[2019-05-05] MEDS ORDERED: LACTATED RINGERS SOLUTION 1000 ML INFUS.BAG IV ONE (21:29)
--- NOTE | 2019-05-05 21:29 | PDOC ---
Documentation entered by Derek Ho SCRIBE, acting as scribe for Ayana Oropeza DO. Ayana Oropeza DO: This documentation has been prepared by the Vic snow Daniel, SCRIBE, under my direction and personally reviewed by me in its entirety. I confirm that the documentation accurately reflects all work, treatment, procedures, and medical decision making performed by me. Attending Attestation - Resident Resident Name: GucciWalt - ED Attending Attestation I have performed the following: I have examined & evaluated the patient, The case was reviewed & discussed with the resident, I agree w/resident's findings & plan, Exceptions are as noted - HPI HPI: 05/05/19 20:44 The patient is a 68 year old male with a past medical history of stage 4 gastric carcinoma here today for evaluation of left leg swelling and pain. The patient reports that he was instructed by Dr. Riley to come in due to an acute onset of left leg swelling and pain which started today. Patient is also currently on amoxicillin and azithromycin for pneumonia. Patient denies headache, lightheadedness. Denies fever, chills. Denies chest pain, shortness of breath. Denies nausea, vomiting, diarrhea, abdominal pain. Allergies: NKA PCP: Maureen Riley - Physicial Exam PE: 05/05/19 20:58 Constitutional: Awake, alert, oriented. No acute distress. Head: Normocephalic. Atraumatic Eyes: PERRL. EOMI. Conjunctivae are not pale. ENT: Mucous membranes are moist and intact. Posterior pharynx without exudates or erythema. Uvula midline. Neck: Supple. Full ROM. No lymphadenopathy. Cardiovascular: +tachycardia. Regular rhythm. S1, S2 regular. Distal pulses are 2+ and symmetric. Pulmonary/Chest: No evidence of respiratory distress. Clear to auscultation bilaterally No wheezing, rales or rhonchi. Abdominal: Soft and non-distended. There is no tenderness. No rebound, guarding or rigidity. No organomegaly. No palpable masses. Good bowel sounds. Back: No CVA tenderness. Musculoskeletal: +left leg increased swelling, 2 times the size of the right leg. +left calf tenderness. No cyanosis. No clubbing. Full range of motion in all extremities. Radial/pedal pulses are intact and 2+ bilaterally Skin: Skin is warm and dry. No petechiae. No purpura. Neurological: Alert and oriented to person, place, and time. Cranial nerves II -XII are grossly intact. Normal speech. Strength is grossly symmetric. No sensory deficits. Psychiatric: Good eye contact. Normal interaction, affect and behavior. - Medical Decision Making 05/05/19 21:20 I, Dr. Ayana Oropeza, DO, attest that this document has been prepared under my direction and personally reviewed by me in its entirety. I further attest, that it accurately reflects all work, treatment, procedures and medical decision -making performed by me. a/p: 68yo male with new dx of gastric ca with acute onset of LLE swelling/calf pain -concern for dvt -will send for ultrasound -also recent fevers/cough - has been on amox/azithro, fever stopped yesterday -denies cough today, denies cp/sob -will send labs, cxr, duplex ultrasound -will monitor and reassess -pt is nontoxic in appearance 05/05/19 23:23 cxr clear portacath to R chest wall 05/06/19 00:16 LE US: Preliminary findings/impression: Findings consistent with deep venous thrombosis at the mid to distal left superficial femoral vein, left popliteal vein and visualized aspects of the left posterior tibial vein. A short-term follow-up ultrasound is recommended for continued evaluation. 05/06/19 00:20 pt with dvt call placed to Dr. Riley to discuss management 05/06/19 00:[address] Riley - requests cta chest given pt starting chemo friday also requests consult to IR for poss ivc filter placement requests heparin iv started will admit pt to Dr. Riley 05/06/19 00:32 family and pt updated 05/06/19 00:37 agrees with the plan Heart Score/ECG Review - ECG Intrepretation Comment:: 05/05/19 22:33 sinus at 95, nl axis, nl interval, t wave inversions v2-3 which are unchanged from prior ekg 04/20/19
[2019-05-05 22:00] LABS: ALBUMIN 3.2 g/dl (3.4-5.0); BILIRUBIN,TOTAL 0.5 mg/dL (0.2-1); CALCIUM 8.9 mg/dL (8.5-10.1); CREATININE 0.6 mg/dL (0.55-1.3); N-TERMINAL BNP 15.9 pg/ml (5-125); POTASSIUM 4.2 mmol/L (3.5-5.1); TOT PROT 6.9 g/dl (6.4-8.2)
--- NOTE | 2019-05-05 22:18 | PDOC ---
*Physical Exam - Vital Signs Last Vital Signs Temp Pulse Resp BP Pulse Ox 97.9 F 105 H 19 132/76 97 05/05/19 18:16 05/05/19 18:16 05/05/19 18:16 05/05/19 18:16 05/05/19 18:16 ED Treatment Course - LABORATORY CBC & Chemistry Diagram: 05/05/19 20:45 05/05/19 20:45 - ADDITIONAL ORDERS Additional order review: Laboratory Results 05/05/19 05/05/19 05/05/19 21:00 20:45 20:45 PT with INR 14.00 H INR 1.18 H PTT (Actin FS) 26.4 Sodium 136 Potassium 4.2 Chloride 100 Carbon Dioxide 27 Anion Gap 9 BUN 10.0 Creatinine 0.6 Est GFR (CKD-EPI)AfAm 120.58 Est GFR (CKD-EPI)NonAf 104.04 Random Glucose 100 Calcium 8.9 Total Bilirubin 0.5 AST 104 H ALT 151 H Alkaline Phosphatase 107 Creatine Kinase 67 Troponin I < 0.02 B-Natriuretic Peptide 15.9 Total Protein 6.9 Albumin 3.2 L 05/05/19 20:45 RBC 4.72 MCV 85.0 MCHC 34.1 RDW 13.3 MPV 8.2 Neutrophils % 63.4 Lymphocytes % 20.1 D Monocytes % 12.6 H Eosinophils % 3.0 Basophils % 0.9 Medical Decision Making - Medical Decision Making 05/05/19 22:16 68 y/o M hx recently stage IV Gastric Ca presenting with left leg swelling and pain x 2 days no sob no chest pain workup follow up with doppler dispo pending results. 05/06/19 00:29 duplex u/s shows dvt Pt admitted to Dr. Maureen Riley's service, who recommends a Chest CTA. Discharge - Follow up/Referral Referrals: Maureen Riley [Primary Care Provider] - - Patient Discharge Instructions - Post Discharge Activity
[2019-05-06] MEDS ORDERED: HEPARIN NA (PORCINE) 5,000 UNITS/ML 1ML VIAL IVPUSH PRN ×2 (00:23)
[2019-05-06] MEDS ORDERED: HEPARIN - 25,000 UNIT in SODIUM CHLORIDE 495 ML IV SCH (00:30)
[2019-05-06] MEDS ORDERED: AMOXICILLIN ORAL SUSPENSION - 250 MG/5 ML PO ONE (00:37)
[2019-05-06] MEDS ORDERED: HEPARIN INFUSION - 25,000 UNITS/500 ML INFUS.BAG IVPB ONE (00:57)
[2019-05-06] MEDS ORDERED: HEPARIN NA (PORCINE) 5,000 UNITS/ML 1ML VIAL ONE (00:57)
[2019-05-06] MEDS ORDERED: AMOXICILLIN ORAL SUSPENSION - 250 MG/5 ML ONE (01:21)
--- NOTE | 2019-05-06 07:13 | HP ---
Admitting History and Physical - Primary Care Physician PCP: Maureen Riley S - Admission Chief Complaint: LLE pain and edema History of Present Illness: 68 YOM recently dx with poorly diff stomach CA recently transferred from [facility] to [facility] for further w/u and tx; had stomach stent - helped, able to eat; had PET scan in [facility] c/w distant mets stage 4 CA; DCd from [facility] last weekend with plan to f/u with ONC for chemotx (had port placed) ; yesterday developed LLE cramps in am followed by swelling of the leg by the afternoon so he was brought to ER by his family. No CP/SOB but has some L upper back pain chronically (long time) History Source: Patient Limitations to Obtaining History: No Limitations - Past Medical History Musculoskeletal: Yes: Osteoarthritis - Past Surgical History Past Surgical History: Yes: Hernia Repair (RIH) - Smoking History Smoking history: Never smoked Have you smoked in the past 12 months: No - Alcohol/Substance Use Hx Alcohol Use: No History of Substance Use: reports: None - Social History Usual Living Arrangement: Yes: With Spouse Do you think of yourself as: Straight/Heterosexual ADL: Independent Occupation: building maintenance History of Recent Travel: No Home Medications - Allergies Allergies/Adverse Reactions: Allergies Allergy/AdvReac Type Severity Reaction Status Date / Time No Known Allergies Allergy Verified 05/05/19 18:19 - Home Medications Home Medications: Ambulatory Orders Enoxaparin [Lovenox -] 80 mg SQ Q12H #60 disp.syrin 05/06/19 Review of Systems - Review of Systems Constitutional: denies: Chills, Fever Eyes: denies: Blind Spots, Blurred Vision HENT: denies: Difficult Swallowing, Epistaxis, Nasal Congestion Cardiovascular: denies: Chest Pain, Palpitations, Shortness of Breath Respiratory: denies: Cough, SOB Gastrointestinal: denies: Abdominal Pain, Vomiting Musculoskeletal: reports: Extremity Pain. denies: Back Pain Integumentary: denies: Eczema, Erythema, Wound Neurological: denies: Change in LOC, Confusion, Dizziness Hematology/Lymphatic: denies: Easily Bruised, Excessive Bleeding Psychiatric: denies: Anxiety, Depression Physical Examination Vital Signs: Vital Signs Temperature 98.5 F 05/06/19 04:59 Pulse Rate 88 05/06/19 04:59 Respiratory Rate 20 05/06/19 04:59 Blood Pressure 132/72 05/06/19 04:59 O2 Sat by Pulse Oximetry (%) 99 05/06/19 04:59 Constitutional: Yes: No Distress, Calm Eyes: Yes: Conjunctiva Clear HENT: Yes: Atraumatic Neck: Yes: Supple Cardiovascular: Yes: Regular Rate and Rhythm Respiratory: Yes: CTA Bilaterally Gastrointestinal: Yes: Soft. No: Tenderness Renal/: No: Hematuria Musculoskeletal: Yes: Muscle Pain. No: Joint Stiffness, Joint Swelling Extremities: No: Cold, Cool, Cyanosis Edema: Yes (LLE 1+ below knee) Integumentary: No: Rash, Venous Stasis Changes Neurological: Yes: WNL, Alert, Oriented ...Motor Strength: WNL Psychiatric: Yes: WNL, Alert, Oriented. No: Agitated, Suicidal Ideation Labs: CBC, BMP 05/05/19 20:45 05/05/19 20:45 Imaging - Results Chest X-ray: Report Reviewed Cat Scan: Report Reviewed Other: Report Reviewed Assessment/Plan 68 YOM poorly diff stomach CA s/p pyloric stent now with LLE pain and edema venous US / ER c/w extensive DVT; CTA R sided PE started on iv heparin will d/w ONC and IR further tx - senior care AC and IV filter? d/w pt and family at bedside.
[2019-05-06] MEDS ORDERED: SODIUM CHLORIDE 1,000 ML IV SCH (07:15)
[2019-05-06 07:55] LABS: BASO % 0.8 % (0-2.0); EOS % 4.2 % (0-4.5); HEMATOCRIT 37.1 % (35.4-49); HEMOGLOBIN 12.7 GM/dL (11.7-16.9); LYMPH % 23.4 % (8-40); MCHC 34.3 g/dl (32.0-35.9); MEAN CELL VOLUME 84.5 fl (80-96); MEAN PLT VOLUME 8.1 fl (7.5-11.1); MONO % 11.8 % (3.8-10.2); NEUT % 59.8 % (42.8-82.8); PLATELET COUNT 193 K/MM3 (134-434); RBC 4.39 M/mm3 (4.00-5.60); RDW 13.5 % (11.9-15.9); WHITE BLOOD COUNT 4.8 K/mm3 (4.0-10.0)
[2019-05-06 08:37] LABS: BILIRUBIN,TOTAL 0.5 mg/dL (0.2-1); BLOOD UREA NITROGEN 7.1 mg/dL (7-18); CALCIUM 8.6 mg/dL (8.5-10.1); CREATININE 0.6 mg/dL (0.55-1.3); TOT PROT 6.5 g/dl (6.4-8.2)
[2019-05-06 08:57] LABS: INR 1.16 (0.83-1.09); PROTHROMBIN TIME (PATIENT) 13.7 SEC (9.7-13.0)
[2019-05-06 09:00] LABS: ACTIVATED PTT 42.5 SECONDS (25.2-36.5)
[2019-05-06 11:48] VITALS: TEMP 98.1
--- NOTE | 2019-05-06 11:57 | CONSULT ---
Consult Consult Specialty:: Hematology and Oncology Reason for Consultation:: DVT/PE - History of Present Illness History of Present Illness: The patient is a 68 yo m w/ PMH Gastric cancer who comes into the ER c/o LLE pain and swelling for the past 1 day. Patient denies any other complaints. LE doppler in the ED found a DVT. A CTA found a sub-segmental PE. On interview, the patient has no complaints and states that the swelling in his leg has improved. - History Source History Provided By: Patient, Medical Record Limitations to Obtaining History: No Limitations - Past Medical History Heme/Onc: Yes: Cancer (gastric cancer) Musculoskeletal: Yes: Osteoarthritis - Past Surgical History Past Surgical History: Yes: Hernia Repair (RIH) - Alcohol/Substance Use Hx Alcohol Use: No History of Substance Use: reports: None - Smoking History Smoking history: Never smoked Have you smoked in the past 12 months: No - Social History Usual Living Arrangement: With Spouse ADL: Independent Occupation: building maintenance History of Recent Travel: No Home Medications - Allergies Allergies/Adverse Reactions: Allergies Allergy/AdvReac Type Severity Reaction Status Date / Time No Known Allergies Allergy Verified 05/05/19 18:19 - Home Medications Home Medications: Ambulatory Orders Enoxaparin [Lovenox -] 80 mg SQ Q12H #60 disp.syrin 05/06/19 Review of Systems - Review of Systems Constitutional: denies: Chills, Fever Neck: denies: Lumps, Tenderness Cardiovascular: denies: Chest Pain, Palpitations, Shortness of Breath Respiratory: denies: Cough, SOB, SOB on Exertion, Wheezing Gastrointestinal: denies: Abdominal Pain, Melena, Nausea, Vomiting, Vomiting Blood Musculoskeletal: reports: Extremity Pain (LLE pain, improved) Physical Exam Vital Signs: Vital Signs Temperature 98.1 F 05/06/19 08:40 Pulse Rate 83 05/06/19 08:40 Respiratory Rate 20 05/06/19 08:40 Blood Pressure 111/68 05/06/19 08:40 O2 Sat by Pulse Oximetry (%) 99 05/06/19 04:59 Constitutional: Yes: Well Nourished, No Distress, Calm Eyes: Yes: PERRL HENT: Yes: Atraumatic Cardiovascular: Yes: Regular Rate and Rhythm, S1, S2. No: Gallop, Murmur, Rub Respiratory: Yes: Regular, CTA Bilaterally Gastrointestinal: Yes: Normal Bowel Sounds, Soft Extremities: Yes: Calf Tenderness Edema: Yes Edema: LLE: 1+ Peripheral Pulses WNL: Yes Integumentary: Yes: WNL Neurological: Yes: Alert, Oriented, Cran Nerves II-XII Intact Psychiatric: Yes: Alert, Oriented Labs: CBC, BMP 05/06/19 07:00 05/06/19 07:00 Assessment/Plan The patient is a 68 yo m w/ PMH Gastric cancer who comes into the ER c/o LLE pain and swelling for the past 1 day. Patient denies any other complaints. LE doppler in the ED found a DVT. A CTA found a sub-segmental PE. #DVT/PE likely 2/2 hypercoagulable state in the setting of active malignancy -patient on lovenox BID -monitor respiratory status -patient to follow up with hematology as outpatient.
[2019-05-06] MEDS ORDERED: ENOXAPARIN NA (PORCINE) 80 MG/0.8 ML DISP.SYRIN SQ SCH ×2 (13:00→14:33)
--- NOTE | 2019-05-06 13:34 | EKG ---
Test Reason : Blood Pressure : / mmHG Vent. Rate : 095 BPM Atrial Rate : 095 BPM P-R Int : 170 ms QRS Dur : 090 ms QT Int : 358 ms P-R-T Axes : 056 -03 018 degrees QTc Int : 449 ms NORMAL SINUS RHYTHM NONSPECIFIC T WAVE ABNORMALITY ABNORMAL ECG WHEN COMPARED WITH ECG OF 20-APR-2019 15:58, NO SIGNIFICANT CHANGE WAS FOUND Confirmed by DIDI BUENO MD ([id number]) on 05/06/2019 1:34:06 PM Referred By: Confirmed By:DIDI BUENO MD
[2019-05-06 15:05] VITALS: BP 117/72; PULSE 89
--- NOTE | 2019-05-06 16:21 | DS ---
Physical Examination Vital Signs: Vital Signs Temperature 98.1 F 05/06/19 15:04 Pulse Rate 89 05/06/19 15:04 Respiratory Rate 20 05/06/19 15:04 Blood Pressure 117/72 05/06/19 15:04 O2 Sat by Pulse Oximetry (%) 99 05/06/19 04:59 Findings/Remarks: see H&P from earlier today started on IV heparin no more leg pain and swelling went down no CP/SOB; d/w IR dr Beebe - since no bleeding and no CI to AC would do AC only no filter (SE filter clotting, migration possible) if any bleeding in the future to have filter placed; I also d/w ONC dr Quesada who also suggested no filter and to DC home on sq lovenox - ordered and pt;'s daughter will do it home for him; has f/u with ONC - plan to start chemotx soon; add note pt had some cough and fever right after DC home from [facility] CXR negative but is on Zpack and amoxicillin po currenlt to complete 7 days feels better Labs: CBC, BMP 05/06/19 07:00 05/06/19 07:00 Discharge Summary Problems reviewed: Yes Reason For Visit: DEEP VEIN THROMBOSIS (DVT) OF LEFT EXTREMITY Procedures: Principal: 68 YOM recently dx poorly diff stage 4 stomach CA admitted with DVT / PE. Other Procedures: anticoagulation iv heparin Hospital Course: d/w ONC and IR plan sq lovenox; no filter for now; to start chemotx outpt per ONC Plan of Treatment: OUTPT chemotx. life long (unless bleeding or SE) sq lovenox; f/u :CP and ONC within 1-2 weeks; RTER if any new c/o d/w pt and family plan in detail. Condition: Improved - Instructions Diet, Activity, Other Instructions: f/u PCP and ONC in 1-2 weeks; sq lovenox bid RTER if worse or recurrent c/o. Referrals: Maureen Riley [Primary Care Provider] - Zachary Rdz MD [Staff Physician] - Disposition: HOME - Home Medications Comprehensive Discharge Medication List: Ambulatory Orders Enoxaparin [Lovenox -] 80 mg SQ Q12H #60 disp.syrin 05/06/19
== END 2019-05-06 17:11 | disposition home or self-care (01) | DRG 299 ==
LOC: JER 18:11 → JERBED 05-06 00:26 → J8W 05-06 04:57
PROVIDERS: ADMIT Internal Medicine; ATTEND Internal Medicine
DX: I82.4Z2 Acute embolism and thrombosis of unspecified deep veins of left distal lower extremity (principal); I26.99 Other pulmonary embolism without acute cor pulmonale; C16.9 Malignant neoplasm of stomach, unspecified; D68.59 Other primary thrombophilia; M19.90 Unspecified osteoarthritis, unspecified site
CPT/HCPCS: 36415; 71046-TC-FY; 71275-TC; 80053; 82550; 83880; 84484; 85025; 85610; 85730; 93005; 93010; 93971-TC; 99285-25; J1644; J7030